=== PATIENT | female | born 1950 | race Caucasian/White ===

== ENCOUNTER → 2023-04-27 | Outpatient (CLI) | payer MEDICARE, SELFPAY ==
--- NOTE | 2023-04-27 16:44 | MRI_ITS ---
EXAM: MR HEAD WITHOUT INTRAVENOUS CONTRAST CLINICAL INDICATION: Mild cognitive impairment; history TBI in 2017 TECHNIQUE: Multiplanar and multisequence MR images of the brain were obtained without intravenous contrast. COMPARISON: Head CT January 17, 2017, there was subarachnoid hemorrhage at that time on review and possibly hemorrhagic contusion. FINDINGS: BRAIN AND EXTRA-AXIAL SPACES: Mild cerebral volume loss with prominent CSF spaces over the frontoparietal convexities. No intra- or extra-axial hemorrhage. No evidence of acute infarct. No intracranial mass or mass effect. There is preservation of the richardson/white matter interface. Posterior fossa structures are unremarkable. Ventricles are appropriate for age. No hydrocephalus. Basal cisterns are patent. No evidence of hemosiderin deposition on the susceptibility images. Slight chronic deep periventricular white matter changes. SELLA: Partial empty sella, usually normal variation for age. BONES/JOINTS: Unremarkable. No discrete lytic or blastic abnormalities. SINUSES: Unremarkable as visualized. Clear. MASTOID AIR CELLS: Unremarkable as visualized. Clear. ORBITS: Unremarkable as visualized. Both globes, extraocular muscles, optic nerves and retrobulbar fat appear unremarkable. VASCULATURE: Unremarkable as visualized. Normal flow voids in the major intracranial circulation. MRI/Brain without Contrast IMPRESSION: Mild cerebral volume loss. No suspicious acute findings. Minimal chronic white matter changes. Electronically Signed: Za Bañuelos MD at 9:43 EDT ,
--- NOTE | 2023-04-27 16:44 | MRI_ITS ---
EXAM: MR ANGIOGRAPHY HEAD WITHOUT INTRAVENOUS CONTRAST CLINICAL INDICATION: Family history of cerebral aneurysm TECHNIQUE: Routine [place]/brain 3D time of flight MR angiogram protocol was performed without intravenous contrast. COMPARISON: No relevant prior studies available. FINDINGS: RIGHT INTERNAL CAROTID ARTERY: No acute findings. No significant stenosis at the intracranial/visualized segments. No aneurysm. RIGHT ANTERIOR CEREBRAL ARTERY: Unremarkable. No significant stenosis at the visualized segments. Anterior communicating artery is present. No aneurysm. RIGHT MIDDLE CEREBRAL ARTERY: Unremarkable. No significant stenosis at the visualized segments. No aneurysm. RIGHT POSTERIOR CEREBRAL ARTERY: Unremarkable. No significant stenosis at the visualized segments. No aneurysm. RIGHT VERTEBRAL ARTERY: Unremarkable as visualized. No significant stenosis at the intradural/visualized segments. No aneurysm. LEFT INTERNAL CAROTID ARTERY: No acute findings. No significant stenosis at the intracranial/visualized segments. No aneurysm. LEFT ANTERIOR CEREBRAL ARTERY: Unremarkable. No significant stenosis at the visualized segments. Anterior communicating artery is present. No aneurysm. LEFT MIDDLE CEREBRAL ARTERY: Unremarkable. No significant stenosis at the visualized segments. No aneurysm. LEFT POSTERIOR CEREBRAL ARTERY: Unremarkable. No significant stenosis at the visualized segments. No aneurysm. LEFT VERTEBRAL ARTERY: Unremarkable as visualized. No significant stenosis at the intradural/visualized segments. No aneurysm. BASILAR ARTERY: Unremarkable. No significant stenosis. No aneurysm. OTHER VASCULATURE: No vascular malformation. MRI/MRA Head ONLY without Contrast IMPRESSION: Unremarkable MRA head. Electronically Signed: Za Bañuelos MD at 9:35 EDT ,
== END | disposition home or self-care (01) ==
PROVIDERS: PCP Family Medicine; Referring Provider Psychiatry & Neurology Neurology; Visit Provider Psychiatry & Neurology Neurology
DX: G31.84 Mild cognitive impairment of uncertain or unknown etiology (principal); Z87.820 Personal history of traumatic brain injury; Z82.49 Family history of ischemic heart disease and other diseases of the circulatory system
CPT/HCPCS: 70544; 70551

== ENCOUNTER → 2023-08-21 | Outpatient (CLI) | payer MEDICARE, SELFPAY ==
[2023-08-21 10:00] LABS: Absolute Lymphocyte Count 0.91 X10^3/uL (0.83-4.51); Absolute Neutrophil Count 2.8 X10^3/uL (2.0-7.7); Basophil# 0.03 X10^3/uL; Basophil% 0.7 % (0-1); Eosinophil# 0.16 X10^3/uL; Eosinophils% 3.8 % (0-5); Hematocrit 45.3 % (37-47); Hemoglobin 14.6 g/dL (12.0-15.0); Lymphocyte # 0.91 X10^3/ul (0.83-4.51); Lymphocyte % 21.5 % (19-41); Mean Corp Hgb Conc 32.2 g/dL (32-36); Mean Corpuscular Hgb 29.6 pg (27.0-32.0); Mean Corpuscular Volume 91.7 fL (81-99); Mean Platelet Vol. 11.4 fl (6.2-12.0); Monocyte# 0.33 X10^3/uL; Monocyte% 7.8 % (0-10); NRBC Flagged by Analyzer 0 % (0-5); Platelet Count 151 K/mm3 (150-450); RBC Distribution Width CV 13.9 % (11.6-14.6); RBC Distribution Width SD 46.7 fl (35.1-43.9); Red Blood Count 4.94 M/mm3 (4.2-5.4); White Blood Count 4.2 K/mm3 (4.4-11.0)
[2023-08-21 10:14] LABS: Vitamin B12 375 pg/mL (211-911)
[2023-08-21 11:04] LABS: ALB/GLOB Ratio 0.9 RATIO (0.9-2.4); AST(SGOT) 40 U/L (15-37); Alanine Aminotransfer ALT/SGPT 73 U/L (13-56); Albumin, Serum 3.6 g/dL (3.2-5.0); Alkaline Phosphatase 89 U/L (45-117); Anion Gap 5 (5-15); BUN 20 mg/dL (7-18); BUN/Creat Ratio 21.2 RATIO (10-20); Calcium,Total 9.1 mg/dL (8.5-10.1); Chloride 104 mmol/L (98-107); Creatinine, Serum 0.94 mg/dL (0.55-1.02); EST Glomerular Filtration Rate 62 mL/min (>60); Est Glom Filt Rate - Afr Amer 75 mL/min (>60); Free T3 2.8 pg/mL (2.18-3.98); Globulin 3.8 g/dL (2.2-4.2); Glucose 173 mg/dL (74-106); Potassium 4.5 mmol/L (3.5-5.1); Protein, Total 7.4 g/dL (6.4-8.2); Sodium Level 138 mmol/L (136-145); T4 Free Direct 1.11 ng/dL (0.76-1.46); Thyroid Stim Hormone (TSH) 3.91 uIU/mL (0.358-3.74)
[2023-08-24 16:09] LABS: Free Kappa Light Chains 21.6 mg/L (3.3-19.4); Free Lambda Light Chains 12.4 mg/L (5.7-26.3); Vitamin B1, Thiamine 117.8 nmol/L (66.5-200.0)
== END | disposition home or self-care (01) ==
PROVIDERS: PCP Family Medicine; Referring Provider Psychiatry & Neurology Neurology; Visit Provider Psychiatry & Neurology Neurology
DX: G31.84 Mild cognitive impairment of uncertain or unknown etiology (principal); G62.9 Polyneuropathy, unspecified
CPT/HCPCS: 36415; 80053; 82140; 82607; 82746; 83883; 84425; 84439; 84443; 84481; 85025

== ENCOUNTER → 2024-04-14 | Outpatient (CLI) | payer MEDICARE, SELFPAY ==
[2024-04-16 15:09] LABS: Albumin 3.9 g/dL (2.9-4.4); Alpha-1-Globulins 0.3 g/dL (0.0-0.4); Alpha-2-Globulins 0.9 g/dL (0.4-1.0); Gamma Globulin 0.8 g/dL (0.4-1.8); Immunoglobulin A 137 mg/dL (64-422); Immunoglobulin G 792 mg/dL (586-1602); Immunoglobulin M 92 mg/dL (26-217)
== END | disposition home or self-care (01) ==
LOC: MTLAB 13:48
PROVIDERS: PCP Family Medicine; Referring Provider Psychiatry & Neurology Neurology; Visit Provider Psychiatry & Neurology Neurology
DX: G62.9 Polyneuropathy, unspecified (principal)
CPT/HCPCS: 36415; 82784; 84165; 86334; 86335

== ENCOUNTER → 2024-11-03 | Outpatient (CLI) | payer MEDICARE, SELFPAY ==
--- NOTE | 2024-11-03 09:20 | FLU_PTH ---
PATIENT: AILYN MONTESINOS LOC: [facility]#:[id number] AGE/SX: 74/F ROOM: RE11/03/[address]: Dr. Macho Truong MD : 1950 BED: DIS: 11/03/2024 SPEC #: [id number] RECD: 11/03/24 11:11 STATUS: JESUS VANNA #: [id number] CHAYITO: 11/03/24 09:[address]: Macho Truong DEPT: CYTOLOGY RECD BY: Joy Blas ENTERED: 11/03/24 11:22 SP TYPE: Fluid OTHR DR: Dr. Cesar Pickett MD Tissues: A - Thyroid gland, NOS B - Thyroid gland, NOS Procedures: Special Stain Group II Surgery Specimen Level IV Cytospin Fluid Cytology Other HEADER OPERATION: Fine needle aspiration of right thyroid nodule PRE-OP DIAGNOSIS: Right thyroid nodule TISSUE SUBMITTED: A- Right thyroid nodule fluid for cytology, B- Right thyroid nodule slides DIAGNOSIS CYTOLOGY A. Right thyroid nodule fluid, fine needle aspiration (cytospins and cellblock): Negative for malignant cells. See comment. B. Right thyroid nodule, fine needle aspiration (smears): Follicular cells with minimal atypia of undermined significance, [place] Category III. Adequate for evaluation. See comment. 11/04/2024 COMMENT A. Clusters of benign follicular cells noted. B. Focal overcrowding in the cluster of follicular cells is also noted. Per recommendations and a clinician-approved plan (a call was made to the referring doctor about the recommendation), genomic testing (Afirma) has been submitted. Results will be reported as an addendum and faxed to clinician. The [place] System for thyroid diagnostic categorization was used in the evaluation of this case. Correlation with clinical, radiologic findings and appropriate follow up are necessary. CYTOLOGY STUDY Slides are reviewed. CYTOLOGY GROSS A. Received is 30 ml of red-cloudy fluid labeled with the patient's name and and designated per the requisition as Right thyroid nodule. Submitted for cytology preparation including cell block. B. Received are 4 smears labeled with the patient's name and designated per the requisition as Right thyroid nodule. Submitted for staining. 11/03/2024 TC:5 [facility]: [id number] ADDENDUM ADDENDUM ADDENDUM ADDENDUM ADDENDUM ADDENDUM ADDENDUM 11/17/2024 08:38 ADDENDUM 11/17/2024 08:38 ADDENDUM 11/17/2024 08:38 ADDENDUM 11/17/2024 08:38 ADDENDUM 11/17/2024 08:38 AFIRMA RESULTS REPORT RESULTS INTERPRETATION: The result of this 2.8 cm [place] III nodule A is Afirma GSC benign, which suggests a low risk of cancer of approximately 4%. Please see complete report in e-chart or EMR
[2024-11-06 08:08] LABS: Thyroglobulin Antibody < 1.0 IU/mL (0.0-0.9); Thyroid Peroxidase AB < 9 IU/mL (0-34); Thyroid Stim Immunoglob <0.10 IU/L (0.00-0.55)
== END | disposition home or self-care (01) ==
PROVIDERS: PCP Family Medicine; Referring Provider Surgery; Visit Provider Surgery
DX: E04.1 Nontoxic single thyroid nodule (principal)
CPT/HCPCS: 36415; 84445; 86376; 86800; 88108; 88161; 88305; 88313

== ENCOUNTER → 2024-12-18 | Outpatient (CLI) | payer MEDICARE, SELFPAY ==
--- NOTE | 2024-12-18 08:35 | NM_ITS ---
PROCEDURE: THYROID IMAGE QUANT MEASURE REASON FOR EXAM: THYROID NODULE in the upper pole of the right lobe of the thyroid. TECHNIQUE: The patient ingested 312 uCi of iodine 123. Thyroid scan was obtained. RADIOPHARMACEUTICAL: Iodine 123 COMPARISON: None. FINDINGS: There is evidence of slight decreased uptake in the upper pole of the right lobe of the thyroid corresponding to the sonographic abnormality. Uptake at 4 hours measures 15.5%. 24 hour uptake measures 39.5%. This is slightly above the normal of 35%. NM/Thyroid Image Quant Measure IMPRESSION: Mild decreased uptake in the upper pole of the right lobe of the thyroid. Ther e is enlargement of the thyroid gland. 24 hour uptake is 39.5%. Reading Location: [place] [id number]
== END | disposition home or self-care (01) ==
PROVIDERS: PCP Family Medicine; Referring Provider Surgery; Visit Provider Surgery
DX: E05.90 Thyrotoxicosis, unspecified without thyrotoxic crisis or storm (principal); E04.1 Nontoxic single thyroid nodule; R94.6 Abnormal results of thyroid function studies
CPT/HCPCS: 78014; A9516